=== PATIENT | female | born 1985 | race American Indian/Alaskan Native ===

== ENCOUNTER 2021-07-02 11:28 | Emergency (ER) | payer BC, MEDICAID ==
--- NOTE | 2021-07-02 12:01 | Emergency Department Report ---
ED ENT HPI - General Chief complaint: Earache Stated complaint: EAR BLOCKAGE/FATIGUE/HEADACHE Time Seen by Provider: 07/02/21 11:52 Source: patient Mode of arrival: Ambulatory Limitations: No Limitations - History of Present Illness Initial comments: This is a 35-year-old female brought by mother nontoxic, well nourished in appearance, no acute signs of distress presents to the ED with c/o of bilateral earache times several days. Patient denies any ear drainage. Patient denies any trauma to the area. Patient denies any mastoid tenderness or tragus tenderness. Patient stated has some hearing decrease. Patient denies any fever, chills, nausea, vomiting, chest pain, short of breath, headache or stiff neck. Patient denies any drug allergies or significant past medical history. MD complaint: ear pain -: days(s) Location: R ear, L ear Severity: mild Severity scale (0 -10): 8 Quality: aching Consistency: constant Improves with: none Worsens with: none Associated Symptoms: hearing loss. denies: fever, cough, gum swelling, toothache, pain with swallowing, sore throat, tinnitus, discharge from ear, rhinorrhea - Related Data Previous Rx's Medication Instructions Recorded Last Taken Type Lidocain2.5%/Prilocai2.5% [Emla] 5 gm TP ONCE #1 tube 07/26/15 Unknown Rx Amoxicillin [Amoxicillin TAB] 875 mg PO BID #20 tablet 07/02/21 Unknown Rx Allergies Allergy/AdvReac Type Severity Reaction Status Date / Time No Known Allergies Allergy Verified 07/26/15 22:40 ED Dental HPI - General Chief complaint: Earache Stated complaint: EAR BLOCKAGE/FATIGUE/HEADACHE Time Seen by Provider: 07/02/21 11:52 Source: patient Mode of arrival: Ambulatory Limitations: No Limitations - Related Data Previous Rx's Medication Instructions Recorded Last Taken Type Lidocain2.5%/Prilocai2.5% [Emla] 5 gm TP ONCE #1 tube 07/26/15 Unknown Rx Amoxicillin [Amoxicillin TAB] 875 mg PO BID #20 tablet 07/02/21 Unknown Rx Allergies Allergy/AdvReac Type Severity Reaction Status Date / Time No Known Allergies Allergy Verified 07/26/15 22:40 ED Review of Systems ROS: Stated complaint: EAR BLOCKAGE/FATIGUE/HEADACHE Other details as noted in HPI Comment: All other systems reviewed and negative Constitutional: denies: chills, fever Eyes: denies: eye pain, eye discharge, vision change ENT: ear pain. denies: throat pain, dental pain, hearing loss, epistaxis, congestion Respiratory: denies: cough, shortness of breath, wheezing Cardiovascular: denies: chest pain, palpitations Endocrine: no symptoms reported Gastrointestinal: denies: abdominal pain, nausea, diarrhea Genitourinary: denies: urgency, dysuria, discharge Musculoskeletal: denies: back pain, joint swelling, arthralgia Skin: denies: rash, lesions Neurological: denies: headache, weakness, paresthesias Psychiatric: denies: anxiety, depression Hematological/Lymphatic: denies: easy bleeding, easy bruising ED Past Medical Hx - Past Medical History Previous Medical History?: No Hx Hypertension: No Hx Congestive Heart Failure: No Hx Diabetes: No Hx Deep Vein Thrombosis: No Hx Renal Disease: No Hx Sickle Cell Disease: No Hx Seizures: No Hx Asthma: No Hx COPD: No Hx HIV: No - Surgical History Past Surgical History?: No - Social History Smoking Status: Never Smoker - Medications Home Medications: Home Medications Medication Instructions Recorded Confirmed Last Taken Type Lidocain2.5%/Prilocai2.5% [Emla] 5 gm TP ONCE #1 tube 07/26/15 Unknown Rx Amoxicillin [Amoxicillin TAB] 875 mg PO BID #20 tablet 07/02/21 Unknown Rx ED Physical Exam - General Limitations: No Limitations General appearance: alert, in no apparent distress - Head Head exam: Present: atraumatic, normocephalic - Eye Eye exam: Present: normal appearance - Expanded ENT Exam Expanded Ear exam: Present: normal external inspection TM/Canal exam: Erythema: Right TM, Left TM, Bulging: Right TM, Left TM Mouth exam: Present: normal external inspection. Absent: drooling, trismus, muffled voice Teeth exam: Present: normal inspection Throat exam: Positive: normal inspection, other (uvula midline). Negative: tonsillar erythema, tonsillomegaly, tonsillar exudate, R peritonsillar mass, L peritonsillar mass - Neck Neck exam: Present: normal inspection, full ROM. Absent: lymphadenopathy - Respiratory Respiratory exam: Absent: respiratory distress - Cardiovascular Cardiovascular Exam: Present: regular rate - Extremities Exam Extremities exam: Present: full ROM - Back Exam Back exam: Present: full ROM - Neurological Exam Neurological exam: Present: alert, oriented X3, normal gait - Psychiatric Psychiatric exam: Present: normal affect, normal mood - Skin Skin exam: Present: warm, dry, intact, normal color. Absent: rash ED Course Vital Signs 07/02/21 11:52 Temperature 98.9 F Pulse Rate 88 Respiratory 18 Rate Blood Pressure 160/115 O2 Sat by Pulse 96 Oximetry - Reevaluation(s) Reevaluation #1: 07/02/21 12:03 Patient is speaking in full sentences with no signs of distress noted. ED Medical Decision Making - Medical Decision Making Patient be treated with amoxicillin. Patient is stable and was examined by me. Patient was instructed to follow-up with a primary care doctor in 3-5 days or if symptoms worsen and continue return to emergency room as soon as possible. At time of discharge, the patient does not seem toxic or ill in appearance. No acute signs of distress noted. Patient agrees to discharge treatment plan of care. No further questions noted by the patient. Critical care attestation.: If time is entered above; I have spent that time in minutes in the direct care of this critically ill patient, excluding procedure time. ED Disposition Clinical Impression: Otitis media Qualifiers: Otitis media type: unspecified Chronicity: acute Qualified Code(s): H66.90 - Otitis media, unspecified, unspecified ear Disposition: 01 HOME / SELF CARE / HOMELESS Is pt being admited?: No Does the pt Need Aspirin: No Condition: Stable Instructions: Otitis Media, Adult, [id number] Additional Instructions: Follow-up with a primary care doctor in 3-5 days or if symptoms worsen and continue return to emergency room as soon as possible. Prescriptions: Amoxicillin [Amoxicillin TAB] 875 mg PO BID #20 tablet Referrals: PRIMARY CAREMD [Referring] - 3-5 Days CHIO CLEMENT MD [Staff Physician] - 3-5 Days Forms: Work/School Release Form(ED) Time of Disposition: 12:07
[2021-07-02 13:21] VITALS: BP 175/126
== END 2021-07-02 13:19 | disposition home or self-care (01) ==
LOC: ED 11:28
DX: H66.93 Otitis media, unspecified, bilateral (principal)
CPT/HCPCS: 99282